=== PATIENT | female | born 2000 | race Caucasian/White ===

== ENCOUNTER 2023-08-17 06:01 | Day surgery (SDC) | payer OTHER, SELFPAY ==
--- OUTSIDE RECORDS SUMMARY | 2023-08-17 06:04 | XMS_ITS | Referral Summary ---
Author Name Unknown Organization [facility] Address [address] [place] [address] Care Team Providers Care Pyroglazer Name Role Phone Black Bruno P.A.-C., P.A. Primary Care Pr ovider Source Comments Patient records contain information from all sites at [facility]. For routine questions regarding patient records, call [phone] during business hours, M-F 8:00 AM - 5:00 PM Central Time. Record requests for emergency care only can be directed to [phone] at any time.[facility] Encounters Date Type Department Care Team Description 08/02/2023 7:50 AM CDT - 08/02/2023 11:59 PM CDT Hospital Encounter Department of Radiology in [address] [phone] Black Bruno P.A.-C., P.A. Preoperative Exam Discharge Disposition: Home or Self Care 08/02/2023 7:30 AM CDT Office Visit Department of Family Medicine, [facility], in [address] [phone] Black Bruno P.A.-C., P.A. Anxiety (Primary Dx); Morbid Obesity Body Mass Index 45.0-49.9 Adult (HCC); Preoperative Exam; Cough Unspecified Type 07/26/2023 4:00 PM CDT Office Visit Department of Family Medicine, [facility], in [address] [phone] Black Bruno P.A.-C., P.A. Sinusitis (Primary Dx) 07/15/2023 Clinical Communication Department of [facility], [facility], in [place], [place] [address] [place] [phone] Black Bruno P.A.-C., P.A. Communication (Pre Op questions) 07/06/2023 Clinical Communication Department of [facility], in [place], [place] [address] [place] [phone] Black Bruno P.A.-C., P.A. from Last 3 Months Allergies Active Allergy Reactions Criticality Noted Date Comments Ethinyl Estradiol Other (see comments) High 06/11/19 24 redness of skin, burning sensation Norelgestromin Rash High 06/11/2023 redness of skin, burning sensation Medications Medication Sig Dispensed Refills Start Date End Date Status montelukast (SINGULAIR) 10 mg tablet Take 1 tablet (10 mg total) by mouth at bedtime. 90 tablet 3 Active propranoloL (INDERAL) 40 mg tablet Take 1 tablet (40 mg total) by mouth every 6 (six) hours as needed (anxiety). 30 tablet 11 3 Active FLUoxetine (PROzac) 20 mg capsule Take 1 capsule (20 mg total) by mouth daily. 90 capsule 3 3 Active Additional Information Patient not taking.Reported on 07/26/2023 multivitamin/fol ic acid/dha (MULTIVITAMIN-FA -DHA ORAL) Take 1 tablet by mouth. 4 Active norgestimate-eth inyl estradioL (ORTHO-CYCLEN) 0.25- mg-35 mcg per tablet Take 1 tablet by mouth. 4 Active albuterol (ProAir HFA) 90 mcg/actuation inhaler Inhale 2 puffs every 4 (four) hours as needed for wheezing or shortness of breath. 25.5 g 3 4 Active azithromycin (ZITHROMAX) 250 mg tablet Take 2 tabs (500 mg) by mouth today, then 1 tab (250 mg) daily for 4 days. 6 tablet 4 Active fluticasone furoate-vilanter oL (BREO ELLIPTA DISKUS) 100-25 mcg/actuation inhaler Inhale 1 puff daily. 60 each 11 4 08/04/19 25 Active fluticasone propion-salmeter oL 100-50 mcg/actuation diskus inhaler Inhale 1 puff 2 (two) times a day. Rinse mouth with water after use to reduce aftertaste and incidence of candidiasis. Do not swallow. 60 each 4 Active albuterol (ProAir HFA) 90 mcg/actuation inhaler Inhale 2 puffs every 4 (four) hours as needed for wheezing or shortness of breath. 25.5 g 3 3 07/26/19 24 Discontinued(Reo rder) Xulane 150-35 mcg/24 hr patch Apply 1 patch each week for 3 weeks, then remove for 1 week. 3 patch 12 3 08/02/19 24 Discontinued semaglutide (Wegovy) 1.7 mg/0.75 mL pen injector injection Inject 1.7 mg under the skin every 7 (seven) days. 3 mL 4 07/26/19 24 Discontinued amoxicillin-pot clavulanate (AUGMENTIN) 875-125 mg per tablet Take 1 tablet by mouth. 4 07/27/19 24 Active Problems Problem Noted Date Diagnosed Date Morbid Obesity Body Mass Index 45.0-49.9 Adult 0 04/15/2023 Anxiety 06/13/2021 Rhinitis Allergic 06/13/2021 Immunizations Name Administration Dates Next Due 4vHPV (discontinued) 11/02/2013,10/13/2012 9vHPV 02/08/2015,11/02/2013,10/13/2012 DTaP (Infanrix, Tripedia) 07/09/2005,,05/27/2001,2000,2000 HepA Pediatric/Adolescent 12/19/2018,11/25/2016 Hib-HepB 05/15/2002,02/28/2001,2000 IPV 07/09/2005, 2,02/28/2001,2000 Influenza (IM) Preservative Free 12/22/2017, 09/2012 Influenza Laiv (Nasal) (Discontinued) 01/08/2014 Influenza, Injectable, Quadrivalent 12/13/2016 Influenza, Seasonal, Injectable 03/01/2012 MCV4 (Menactra)(Discontinued) 08/09/2017, 017,01/08/2014 MCV4 (Menveo) 08/09/2017,01/08/2014 MMR 07/09/2005,10/17/2001 PCV7 (discontinued) 05/15/2002,05/27/2001,2000 SARS-COV-2 (COVID-19) - MODERNA(Discontinued) 05/02/2020,04/03/2020 Tdap 04/15/2023,10/13/2012 ARMIDA 10/13/2012,07/09/2005 influenza vaccine quad (FLUZONE/FLUARIX) (6 months and older)(PF) 12/30/2022,01/04/2022,01/02/2021,2019,01/06/2019,12/22/2017,12/13/2016,1 05/27/2015,02/02/2013,03/01/2012 Social History Tobacco Use Types Packs/Day Years Used Date Smoking Tobacco: Never Smokeless Tobacco: Never Tobacco Cessation:Counseling Given: Not Answered Alcohol Use Standard Drinks/Week Comments Not Currently 0 (1 standard drink = 0.6 oz pur e alcohol) [facility] Communicadoities Answer Date Recorded In the past 12 months has [facility] [employer], [employer], oil, or water [employer] threatened to shut off services in your home? No 03/23/2023 Humiliation, Afraid, Rape, and Kick questionnair e Answer Date Recorded Within the last year, have y ou been afraid of your partner or ex-partner? No 06/08/2021 Within the last year, have y ou been humiliated or emotionally abused in other ways by your partner or ex-partner? No Within the last year, have y ou been kicked, hit, slapped, or otherwise physically hurt by your partner or ex-partner? No 06/08/2021 Within the last year, have y ou been raped or forced to have any kind of sexual activity by your partner or ex-partner? No 06/08/2021 Social Connection and Isolat ion Panel [NHANES] Answer Date Recorded In a typical week, how many times do you talk on the phone with family, friends, or neighbors? Twice a week 06/08/2021 How often do you get togethe r with friends or relatives? Once a week 06/08/2021 How often do you attend chur ch or temple services? More than 4 times per year 06/08/2021 Do you belong to any clubs o r organizations such as episcopal groups, unions, fraternal or athletic groups, or school groups? Yes 06/08/2021 How often do you attend meet ings of the clubs or organizations you belong to? 1 to 4 times per year 06/08/2021 Are you , , di vorced, , never , or living with a partner? Patient declined 06/08/2021 AUDIT-C Answer Date Recorded Q1: How often do you have a drink containing alc ohol? Never 06/08/2021 Average Number of Drinks Not on file 022 Frequency of Binge Drinking Not on file 05/27 Overall Financial Resource Strain (CARDIA) Answe r Date Recorded How hard is it for you to pa y for the very basics like food, housing, medical care, and heating? Patient declined 06/08/2021 PHQ-2 Answer Date Recorded PHQ-2 Score 0 04/12/2023 [facility] - Occupational Stress Questionnaire Answer Date Recorded Do you feel stress - tense, restless, nervous, or anxious, or unable to sleep at night because your mind is troubled all the time - these days? Only a little 06/08/2021 Exercise Vital Sign Answer Date Recorde d On average, how many days pe r week do you engage in moderate to strenuous exercise (like a brisk walk)? Patient declined On average, how many minutes do you engage in exercise at this level? Patient declined 03/23/2023 Hunger Vital Sign Answer Date Recorded Within the past 12 months, y ou worried that your food would run out before you got the money to buy more. Never true 03/23/20 23 Within the past 12 months, t he food you bought just didn't last and you didn't have money to get more. Never true 03/23/2023 PRAPARE - Transportation Answer Date Re corded In the past 12 months, has l ack of transportation kept you from medical appointments or from getting medications? No 02/27 In the past 12 months, has l ack of transportation kept you from meetings, work, or from getting things needed for daily living? No 03/23/2023 Nutrition Answer Date Recorded On average, how many serving s of fruits and vegetables do you eat per day (serving size is equal to 1 cup or approximately the size of a tennis ball)? 5 or more 03/23/2023 Dental Answer Date Recorded Dental: Regular Dentist Yes 06/03/19 Employment Answer Date Recorded Employment status Employed and actively working without restrictions 03/23/2023 Housing Stability Answer Date Recorded What is your living situation today? I have a [facility] place to live 03/23/2023 Education Answer Date Recorded What is the highest level of school you have completed or the highest degree you have received? Associate degree: occupational, technical, or vocational program 06/02/2021 Sex and Gender Information Value Date Recorded Sex Assigned at Female 03/23/2023 5:23 PM STORAGE WHARFAGE CLERK Gender Identity Female 03/23/2023 5:23 PM STORAGE WHARFAGE CLERK Sexual Orientation Straight 03/23/2023 5: 23 PM STORAGE WHARFAGE CLERK Last Filed Vital Signs Vital Sign Reading Time Taken Comments Blood Pressure 126/85 08/02/2023 7:24 AM CDT ave rage Pulse 98 08/02/2023 7:24 AM CDT Temperature 36 ??C (96.8 ??F) 08/02/2023 7:24 AM CDT Respiratory Rate 16 08/02/2023 7:24 AM CDT Oxygen Saturation 98% 08/02/2023 7:24 AM CDT Inhaled Oxygen Concentration - - Weight 130 kg (287 lb 11.2 oz) 08/02/2023 7:24 A M CDT Height 164 cm (5' 4.57) 08/02/2023 7:24 AM CDT Body Mass Index 48.52 08/02/2023 7:24 AM CDT Plan of Treatment Not on file Procedures Procedure Name Priority Date/Time Associated Diagnosis Comments DX CHEST AP OR PA AND LATERAL 2 VIEWS RAD - Routine (most inpatients and all outpatients) 08/02/2023 8:16 AM CDT Preoperative Exam from Last 3 Months Results * DX Chest AP or PA and Lateral 2 Views (08/02/2023 8:16 AM CDT) Anatomical Region Laterality Modality Chest, Thoracic RST LOS, Tho racic ARZ LOS, Thoracic FLA LOS N/A Digital Radiography Impressions 08/02/2023 8:28 AM CDT Negative chest. Narrative 08/02/2023 8:28 AM CDT EXAM: DX CHEST AP OR PA AND LATERAL 2 VIEWS Procedure Note Keith Ching M.D. - 08/02/2023 EXAM: DX CHEST AP OR PA AND LATERAL 2 VIEWS IMPRESSION: Negative chest. Black Bruno P.A.-C., P.A. IMG DIAG NOSTIC IMAGING PROCEDURES from Last 3 Months Care Teams Pyroglazer Relationship Specialty Start Date End Date Black Bruno P.A.-C., P.A. PCP - General Family Medicine 08/27/17
--- OUTSIDE RECORDS SUMMARY | 2023-08-17 06:04 | XMS_ITS | Clinical Summary ---
Author Name Unknown Organization [facility] Address [address] [place] [address] Care Team Providers Care Gas Controller Name Role Phone Black Bruno P.A.-C., P.A. Primary Care Pr ovider Source Comments Patient records contain information from all sites at [facility]. For routine questions regarding patient records, call [phone] during business hours, M-F 8:00 AM - 5:00 PM Central Time. Record requests for emergency care only can be directed to [phone] at any time.[facility] Allergies Active Allergy Reactions Criticality Noted Date [...] 0 04/15/2023 Anxiety 06/13/2021 Rhinitis Allergic 06/13/2021 Encounters Date Type Department Care Team Description 08/02/2023 7:50 AM CDT - 08/02/2023 11:59 PM CDT Hospital Encounter Department of Radiology in [address] [phone] RoBlack epps P.A.-C., P.A. Preoperative Exam Discharge Disposition: Home or Self Care 08/02/2023 7:30 AM CDT Office Visit Department [facility], [address] [address] Black Bruno P.A.-C., P.A. Anxiety (Primary Dx); Morbid Obesity Body Mass Index 45.0-49.9 Adult (HCC); Preoperative Exam; Cough Unspecified Type 07/26/2023 4:00 PM CDT Office Visit Department [facility], [address] [phone] Black Bruno P.A.-C., P.A. Sinusitis (Primary Dx) 07/15/2023 Clinical Communication Department of [facility], [address] [phone] Black Bruno P.A.-C., P.A. Communication (Pre Op questions) 07/06/2023 Clinical Communication Department of [facility], [address] [phone] Black Bruno P.A.-C., P.A. from Last 3 Months Immunizations Name Administration Dates Next Due 4vHPV [...] drink = 0.6 oz pur e alcohol) [facility] [employer]ities Answer Date Recorded In the past 12 months has [facility] [employer], [employer], oil, or water [employer] threatened to shut off services in your [...] often do you attend chur ch or mormonism services? More than 4 times per year 06/08/2021 Do you belong to any clubs o r organizations such as taoist groups, unions, fraternal or athletic groups, or [...] Answer Date Recorded PHQ-2 Score 0 04/12/2023 [facility] ional Health - Occupational [...] your living situation today? I have a [facility] place to live 03/23/2023 Education Answer Date Recorded What is the highest level of school you have completed or the highest degree you have received? Associate degree: occupational, technical, or vocational program 06/02/2021 Sex and Gender Information Value Date Recorded Sex Assigned at Female 03/23/2023 5:23 PM HARDBOARD FACTORY WORKER Gender Identity Female 03/23/2023 5:23 PM HARDBOARD FACTORY WORKER Sexual Orientation Straight 03/23/2023 5: 23 PM HARDBOARD FACTORY WORKER Last Filed Vital Signs Vital Sign Reading [...] 08/02/2023 7:24 AM CDT Plan of Treatment Health Maintenance Due Date Last Done Comments Hepatitis C Screening 2000 COVID-19 Vaccine () 11/27/2022 03/16/2021, 05/02/2020, 04/03/2020 Cervical Cancer Screening 06/10/20262023 (Performed elsewhere), 06/11/2023 DTaP,Tdap,and Td Vaccines (8 - Td or Tdap) 04/15/2033 04/15/2023, 10/13/2012, 07/09/2005, Additional history exists Hepatitis B Vaccines Completed 05/15/2002, 02/28/2001, 2000 Pneumococcal vaccine (0-64 years) Aged Out 05/15/2002, 05/27/2001, 02/28/2001 No longer eligible based on patient's age to complete this topic HPV Vaccines Completed 02/08/2015, 09/2013, 11/02/2013, Additional history exists Meningococcal Vaccine Completed 08/09/2017 , 08/09/2017, 11/25/2016, Additional history exists Hepatitis A Vaccines Completed 12/19/2018, 11/26/19 17 Influenza Vaccine Completed 12/30/2022, , 01/02/2021, Additional history exists Depression Screening (Annual PHQ-2) Completed 04/15/2023, 04/12/2023 Procedures Procedure Name Priority Date/Time Associated Diagnosis [...] LATERAL 2 VIEWS IMPRESSION: Negative chest. Black JassoC., P.A. IMG DIAG NOSTIC IMAGING PROCEDURES from Last 3 Months Care Teams Gas Controller Relationship Specialty Start Date End Date Black Bruno P.A.-C., P.A. PCP - General Family Medicine 08/27/17
--- OUTSIDE RECORDS SUMMARY | 2023-08-17 06:04 | XMS_ITS | Clinical Summary ---
Author Name Unknown Organization [facility] Address [place], [place] [address] Support Name Relationship Address Phone Opal Laboy Emergency Contact [phone]30 [facility] [address] [address] [address] [facility]arda [facility] Contact [address] [address] Care Team Providers Care National Sales Trainer Name Role Phone Barrington Lopes MD Primary Care Provider Allergies No known active allergies Medications Medication Sig Dispensed Refills Start Date End Date Status fluticasone (50 mcg per actuation) nasal solution (FLONASE)Indicatio ns:Non-recurrent acute suppurative otitis media of left ear without spontaneous rupture of tympanic membrane Inhale 1 [place] in the nostril(s) 2 times daily. 1 Bottle 11 09/15/2019 Active MONO-LINYAH 0.25-35 mg-mcg tablet Take 1 tablet by mouth once daily. 05/17/2020 Active albuterol HFA (PRO-AIR; VENTOLIN; PROVENTIL) 90 mcg/actuation inhalerIndications :Acute non-recurrent pansinusitis Inhale 2 Puffs by mouth every 4 hours if needed (cough or wheezing). 1 Each 08/11/2022 Active propranoloL (INDERAL) 40 mg tablet TAKE ONE TABLET BY MOUTH EVERY 6 HOURS NEEDED FOR ANXIETY Active FLUoxetine (PROZAC) 20 mg capsule Take 20 mg by mouth. 03/26/2023 Active montelukast (SINGULAIR) 10 mg tablet Take 10 mg by mouth. 06/13/2021 Active triamcinolone 0.025% topical (ARISTOCORT) 0.025 % creamIndications:D ermatitis Apply topically to affected area(s) 2 times daily. 80 g 2020 4 Discontinued (*Patient states no longer taking) amoxicillin-clavul anate 875-125 mg tablet (AUGMENTIN)Indicat ions:Acute non-recurrent pansinusitis Take 1 Tablet by mouth two times daily with meals for 7 days. 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 The right ear is slightly painful. ) 07/20/2023 Travel 06/14/2023 Lab Requisition [facility] [phone] Vu, Mary Mao MD from Last 3 Months Immunizations Name Administration Dates Next Due AMB Influenza, (Flumist) Mckayla e Intranasal,LAIV4 (Flu Clinic Only) 01/17/2015 AMB Influenza, IIV3 (Age >=3 years) Preserve Free (Flu Clinic Only) 02/02/2013 DTaP 07/09/2005, 3,05/27/2001,02/28,2000 HIB PRP-T (ActHIB,Hiberix) 05/15/2002,02/28/2001 ,2000 HPV 9 (Gardasil 9) 02/08/2015 Hepatitis B (Peds) 05/15/2002,02/28/2001, 001 Human Papilloma Virus Vaccine 11/02/2013, 013 Inactivated Polio Vaccine 07/09/2005,03/2001,02/28/2001,12/16 Influenza, IIV3 (Age >=3 years) 03/01/2012 Influenza, IIV4 03/26/2016 Influenza,LAIV4 Live Intrana andreina (Flumist) 01/08/2014 MMR 07/09/2005,10/17/2001 Meningococcal Vaccine (Menveo) 08/09/2017,2013 Pneumococcal conj 7-Valent (Prevnar 7) 3,05/27/2001,02/28/2001 Tdap 10/13/2012 Varicella Vaccine 10/13/2012,07/09/2005 Family History Medical History Relation Name Comments Good Health Brother 1 Good Health Brother 2 Asthma Father Tod Hypertension Father Tod Good Health Mother Opal GI Disease Neg. Good Health Sister Relation Name Status Comments Brother 1 Alive Brother 2 Alive Father Tod Alive Mother Opal Alive Neg. Sister Alive Social History Tobacco Use Types Packs/Day Years Used Date Smoking Tobacco: Never Smokeless Tobacco: Never Tobacco Cessation:Counseling Given: Yes Alcohol Use Standard Drinks/Week Comments Never 0 (1 standard drink = 0.6 oz pur e alcohol) PHQ-2 Answer Date Recorded PHQ-2 Score 0 09/12/2018 Social Connections Answer Date Recorded Frequency of Communication with Friends and Fami ly Not on file 03/29/2021 Financial Resource Strain Answer Date R ecorded Difficulty of Paying Living Expenses Not on file 03/29/2021 Difficulty of Paying Living Expenses Not on file 03/29/2021 Sex and Gender Information Value Date Recorded Sex Assigned at Not on file Gender Identity Not on file Sexual Orientation Not on file Obstetrics History Para Term AB IAB SAB Ectopic Multiple Livin g Live Births 0 0 0 0 0 0 0 0 0 0 0 Last Filed Vital Signs Vital Sign Reading Time Taken Comments Blood Pressure 139/83 07/20/2023 5:14 PM CDT Pulse 93 07/20/2023 5:14 PM CDT Temperature 36.6 ??C (97.8 ??F) 07/20/2023 5:14 PM CD T Respiratory Rate 16 07/20/2023 5:14 PM CDT Oxygen Saturation 98% 07/20/2023 5:14 PM CDT Inhaled Oxygen Concentration - - Weight 125.4 kg (276 lb 8 oz) 08/11/2022 12:09 P M CDT Height 165.1 cm (5' 5) 09/12/2018 3:46 PM CDT Body Mass Index - - Plan of Treatment Health Maintenance Due Date Last Done Comments HIV for age 15-65 10/17/2015 BMI (ht and wt on same day) for age 18+ 2018 Hepatitis C screening for age 18-79 2018 Depression screening for age 12+ 09/13/2019 09/12/2018, 08/09/2017 Tetanus booster 10/13/2022 10/13/2012 COVID-19 vaccine series ( season) 2022 03/16/2021, 05/02/2020, 04/03/2020 Influenza for age 9-49 11/28/2023 6, 01/17/2015, 01/08/2014, Additional history exists Pap test for age 21-65 06/10/2026 06/11/2023 Pneumococcal series for age 6-64 Aged Out 05/15/2002, 05/27/2001, 02/28/2001 No longer eligible based on patient's age to complete this topic Tdap Completed 10/13/2012 HPV series for age 9-26 Completed 02/09/20 15, 11/02/2013, 10/13/2012 Procedures Procedure Name Priority Date/Time Associated Diagnosis Comments LAB TRACKING EVENT Routine 06/11/2023 1: 40 PM CDT RF DESIGN ENGINEER THIN PREP PAP SCREEN IMAGED Routine 06/11/2023 1:40 PM CDT from Last 3 Months Results * LAB TRACKING EVENT (06/11/2023 1:40 PM CDT) Other (Other) Client Collect / Unknown 06/11/2023 1:40 PM CDT 06/14/2023 3:23 PM CDT Mary Mcclain MD LAB BILL ONLY Performing Organization Address City/State/[facility] Co de Phone Number [facility] [address] [place] [address], * RF DESIGN ENGINEER THIN PREP PAP SCREEN IMAGED (06/11/2023 1:40 PM CDT) Case Report Gynecologic Cytology Report ? Case: [id number] ? Authorizing Provider: ??Johny, Mary Mao MD ?Collected: ? 06/11/2023 1340 ? Ordering Location: ? [facility] ?Received: ?06/15/2023 1251 ? First Screen: ?Kalpana Bolden ? Specimen: ?RF DESIGN ENGINEER ThinPrep Vial Screening, Cervical ? 06/22/2023 6:01 PM CDT [facility] [employer] [facility] INTERPRETATION/ RESULT NEGATIVE FOR INTRAEPITHELIAL LESION OR MALIGNANCY (NIL) (none) 06/22/2023 6:01 PM CDT [facility] [employer] [facility] IMEN ADEQUACY Satisfactory for evaluation Endocervical component present 06/22/2023 6:01 PM CDT [facility] [employer] A/S LABORATORY ENTRCT LABORATORY HPV REQUEST HPV not requested 2023 6:01 PM CDT [facility] [employer] A/S LABORATORY- ENTRAL LABORATORY Date of LMP 05/20/2023 06/22/2023 6:01 PM CDT [facility] [employer] A/S LABORATORY-C ENTRAL LABORATORY Last Pap Date 06/22/2023 6:01 PM CDT [facility] [employer] A/S [facility]- ENTRAL LAB[facility]AT[facility] Comment:n/a Abnormal Pap or [place] Bx in last 5 years No 06/22/2023 6:01 PM CDT [facility] [employer] A/S LABORATORY- ENTRAL LABORATORY Menstrual Status Regular Periods 06/22/2023 6:01 PM CDT [facility] [employer] A/S LABORATORY- ENTRCT LABORATORY [place] Bx Done Today No 06/22/2023 6:01 PM CDT [facility]-C ENTRAL LABORATORY Additional Information 1st pap 06/22/2023 6:01 PM CDT [facility] Comment: Interpreted at [facility], Central Laboratory - [address], [place] [address] Automated Review Successful 06/22/2023 6:01 PM CDT [facility] Comment:Specimen processed s uccessfully by automated carton filling machine operator device, ThinPrep Imaging System, [employer] Note The pap test is a screening technique, not a diagnostic procedure. It is used primarily to screen for squamous cancers and precursor lesions. Published studies have shown that it is subject to both false negative and false positive results. The pap test should not be used as the sole means to diagnose or exclude pre-malignant and malignant lesions. 06/22/2023 6:01 PM CDT [facility] Other (Cervical) 06/11/2023 1:40 PM CDT 06/15/2023 12:51 PM CDT Mary Daylin Mcclain MD PATHOLOGY/CYTOLOGY [facility] [address] [place] [address], [place] from Last 3 Months Care Teams National Sales Trainer Relationship Specialty Start Date End Date Barrington Lopes MD [address] [place] [address] [address] [address] [address] PCP - General Family Practice 10/14/20
--- OUTSIDE RECORDS SUMMARY | 2023-08-17 06:04 | XMS_ITS ---
Author Name Unknown Organization [facility] Address [address] [place] [address] Care Team Providers Care Branch General Manager Name Role Phone Unavailable Unavailable Unavailable Surgery Details Not on file Complications Check Surgery Details section. Procedure Estimated Blood Loss Check Surgery Details section. Procedure Findings Check Surgery Details section. Procedure Specimens Taken Check Surgery Details section.
--- OUTSIDE RECORDS SUMMARY | 2023-08-17 06:05 | XMS_ITS | Encounter Summary ---
Author Name Unknown Organization [facility] Address [address] [place] [address] Care Team Providers Care Manufacturing Quality Engineer Name Role Phone Black Bruno P.A.-C., P.A. Primary Care Pr ovider Encounter Details Date Type Department Care Team (Late st Contact Info) Description 04/19/2023 Clinical Communication Pharmacy Prior [place] [phone] Rupa Bojorquez Social History Tobacco Use Types Packs/Day Years Used Date Smoking Tobacco: Never Smokeless Tobacco: Never Alcohol Use Standard Drinks/Week Comments Not Currently 0 (1 standard drink = 0.6 oz pur e alcohol) [facility] Utilities Answer Date Recorded In the past 12 months has e electric, gas, oil, or water company threatened to shut off services in your [...] often do you attend chur ch or yazdanism services? More than 4 times per year 06/08/2021 Do you belong to any clubs o r organizations such as temple groups, unions, fraternal or athletic groups, or [...] Answer Date Recorded PHQ-2 Score 0 04/12/2023 [facility] - Occupational Stress [...] your living situation today? I have a [facility] place to live 03/23/2023 Education Answer Date Recorded What is the highest level of school you have completed or the highest degree you have received? Associate degree: occupational, technical, or vocational program 06/02/2021 Sex and Gender Information Value Date Recorded Sex Assigned at Female 03/23/2023 5:23 PM BUSINESS ANALYTICS DIRECTOR Gender Identity Female 03/23/2023 5:23 PM BUSINESS ANALYTICS DIRECTOR Sexual Orientation Straight 03/23/2023 5: 23 PM BUSINESS ANALYTICS DIRECTOR documented as of this encounter Plan of Treatment Not on file documented as of this encounter Visit Diagnoses Not on filedocumented in this encounter Care Teams Manufacturing Quality Engineer Relationship Specialty Start Date End Date Black Bruno P.A.Jaimee., P.A. PCP - General Family Medicine 08/27/17 documented as of this encounter
--- OUTSIDE RECORDS SUMMARY | 2023-08-17 06:05 | XMS_ITS | Encounter Summary ---
Author Name Unknown Organization [facility] Address [address] [place] [address] Care Team Providers Care Multi Township Assessor Name Role Phone Black Bruno P.A.-C., P.A. Primary Care Pr ovider Encounter Details Date Type Department Care Team (Late st Contact Info) Description 04/21/2023 Clinical Communication Department of Family Medicine, [facility], in [place], [place] [address] [place] [address] Black Bruno P.A.-C., P.A. [address] [place] [address] Social History Tobacco Use Types Packs/Day Years Used Date Smoking Tobacco: Never Smokeless Tobacco: Never Alcohol Use Standard Drinks/Week Comments Not Currently 0 (1 standard drink = 0.6 oz pur e alcohol) [facility] Utilities Answer Date Recorded In the past 12 months has [facility], gas, oil, or water [employer] threatened to shut off services in your [...] 06/08/2021 How often do you attend chur or moravian services? More than 4 times per year 06/08/2021 Do you belong to any clubs o r organizations such as mandaen groups, unions, fraternal or athletic groups, or [...] Answer Date Recorded PHQ-2 Score 0 04/12/2023 [facility] - Occupational Stress Questionnaire Answer Date Recorded [...] your living situation today? I have a [facility] place to live 03/23/2023 Education Answer Date Recorded What is the highest level of school you have completed or the highest degree you have received? Associate degree: occupational, technical, or vocational program 06/02/2021 Sex and Gender Information Value Date Recorded Sex Assigned at Female 03/23/2023 5:23 PM INSURANCE SALES EXECUTIVE Gender Identity Female 03/23/2023 5:23 PM INSURANCE SALES EXECUTIVE Sexual Orientation Straight 03/23/2023 5: 23 PM INSURANCE SALES EXECUTIVE documented as of this encounter Plan of Treatment Not on file documented as of this encounter Visit Diagnoses Not on filedocumented in this encounter Care Teams Multi Township Assessor Relationship Specialty Start Date End Date Black Bruno P.A.-C., P.A. PCP - General Family Medicine 08/27/17 documented as of this encounter
--- OUTSIDE RECORDS SUMMARY | 2023-08-17 06:05 | XMS_ITS | Encounter Summary ---
Author Name Unknown Organization [facility] Address [address] [place] [address] Care Team Providers Care Industrial Organization Manager Name Role Phone Black Bruno P.A.-C., P.A. Primary Care Pr ovider Reason for Visit * Reason Onset Date Comments Rx Prior Authorization 05/04/2023 [facility] Rx Denial 05/04/2023 [facility] Encounter Details Date Type Department Care Team (Latest Contact Info) Description 05/04/2023 Clinical Communication Department of Family Medicine, [facility], in [place], [place] [address] [place] [address] Black Bruno P.A.-C., P.A. [address] [place] [address] Rx Prior Authorization ([facility]); Rx Denial ([facility]) Social History Tobacco Use Types Packs/Day Years Used Date Smoking Tobacco: Never Smokeless Tobacco: Never Alcohol Use Standard Drinks/Week Comments Not Currently 0 (1 standard drink = 0.6 oz pur e alcohol) [facility] Utilities Answer Date Recorded In the past [...] often do you attend chur ch or latter-day services? More than 4 times per year 06/08/2021 Do you belong to any clubs o r organizations such as catholic groups, unions, fraternal or athletic groups, or [...] Answer Date Recorded PHQ-2 Score 0 04/12/2023 [facility] of Occupat ional Health - Occupational Stress [...] money to buy more. Never true 03/23/20 Within the past 12 months, t he [...] your living situation today? I have a [facility] place to live 03/23/2023 Education Answer Date Recorded What is the highest level of school you have completed or the highest degree you have received? Associate degree: occupational, technical, or vocational program 06/02/2021 Sex and Gender Information Value Date Recorded Sex Assigned at Female 03/23/2023 5:23 PM ELECTRIC DEICER INSPECTOR Gender Identity Female 03/23/2023 5:23 PM ELECTRIC DEICER INSPECTOR Sexual Orientation Straight 03/23/2023 5: 23 PM ELECTRIC DEICER INSPECTOR documented as of this encounter Plan of Treatment Not on file documented as of this encounter Visit Diagnoses Not on filedocumented in this encounter Care Teams Industrial Organization Manager Relationship Specialty Start Date End Date Black Bruno P.A.-C., P.A. PCP - General Family Medicine 08/27/17 documented as of this encounter
--- OUTSIDE RECORDS SUMMARY | 2023-08-17 06:05 | XMS_ITS | Encounter Summary ---
Author Name Unknown Organization [facility] Address [address] [place] [address] Care Team Providers Care Roving Tester Laboratory Name Role Phone Black Bruno P.A.-C., P.A. Primary Care Pr ovider Reason for Visit * Reason Onset Date Comments Communication 07/15/2023 Pre Op questions Encounter Details Date Type Department Care Team (Latest Contact Info) Description 07/15/2023 Clinical Communication Department of Family Medicine, [facility], in [place], [place] [address] [place] [address] Black Bruno P.A.-C., P.A. [address] [place] [address] Communication (Pre Op questions) Social History Tobacco Use Types Packs/Day Years Used Date Smoking Tobacco: Never Smokeless Tobacco: Never Alcohol Use Standard Drinks/Week Comments Not Currently 0 (1 standard drink = 0.6 oz pur e alcohol) [facility] Utilities Answer Date Recorded In the past 12 months has [employer] gas, oil, or water [employer] threatened to shut off services in your [...] How often do you attend chur or amish services? More than 4 times per year 06/08/2021 Do you belong to any clubs o r organizations such as voodoo groups, unions, fraternal or athletic groups, or [...] Answer Date Recorded PHQ-2 Score 0 04/12/2023 [facility] of Occupat ional Health - Occupational [...] your living situation today? I have a [facility] place to live 03/23/2023 Education Answer Date Recorded What is the highest level of school you have completed or the highest degree you have received? Associate degree: occupational, technical, or vocational program 06/02/2021 Sex and Gender Information Value Date Recorded Sex Assigned at Female 03/23/2023 5:23 PM YOUTH LIAISON OFFICER Gender Identity Female 03/23/2023 5:23 PM YOUTH LIAISON OFFICER Sexual Orientation Straight 03/23/2023 5: 23 PM YOUTH LIAISON OFFICER documented as of this encounter Miscellaneous Notes * Telephone Encounter - Tima Chris, L.P.N. - 07/15/2023 4:59 PM CDT Patient is aware of Black response. documented in this encounter Plan of Treatment Not on file documented as of this encounter Visit Diagnoses Not on filedocumented in this encounter Care Teams Roving Tester Laboratory Relationship Specialty Start Date End Date Black Bruno P.A.-C. P.A. PCP - General Family Medicine 08/27/17 documented as of this encounter
--- OUTSIDE RECORDS SUMMARY | 2023-08-17 06:05 | XMS_ITS | Encounter Summary ---
Author Name Unknown Organization [facility] Address [address] [place] [address] Care Team Providers Care Chief Fishery Division Name Role Phone Black Bruno P.A.-C., P.A. Primary Care Pr ovider Reason for Referral * Outpatient (Routine) - Closed Specialty Diagnoses / Procedures Referred By Paco ferraro Referred To Contact Diagnoses Preoperative Exam Procedures DX Chest AP or PA and Lateral 2 Views Black Bruno P.A.-C., P.A. [address] [place] [address] [facility] Region Referral ID Status Reason Start Date Expiration Date Visits Re quested Visits Authorized [id number] Closed 08/02/2023 08/01/2024 1 1 Reason for Visit * Reason Comments Pre-op Exam IUD placement 08/[address] [facility] [address] Mcclain Still having dry cough- worse at night affected sleep. * Appointment Request (Routine) - Closed Specialty Diagnoses / Procedures Referred By Paco t Referred To Contact Family Medicine Referral ID Status Reason Start Date Expiration Date Visits Re quested Visits Authorized [id number] Closed 07/15/2023 07/14/2024 1 1 Encounter Details Date Type Department Care Team (Late st Contact Info) Description 08/02/2023 7:30 AM CDT Office Visit Department of Family Medicine, [facility], in [place], [place] [address] [place] [address] Black Bruno P.A.-C., P.A. [address] [facility] [place] [address] Anxiety (Primary Dx); Morbid Obesity Body Mass Index 45.0-49.9 Adult (HCC); Preoperative Exam; Cough Unspecified Type Social History Tobacco Use Types Packs/Day Years Used Date Smoking Tobacco: Never Smokeless Tobacco: Never Alcohol Use Standard Drinks/Week Comments Not Currently 0 (1 standard drink = 0.6 oz pur e alcohol) [facility] Utilities Answer Date Recorded In the past 12 months has e [employer], gas, oil, or water [employer] threatened to shut off services in your [...] How often do you attend chur or yazdanism services? More than 4 times per year 06/08/2021 Do you belong to any clubs o r organizations such as moravian groups, unions, fraternal or athletic groups, or [...] Answer Date Recorded PHQ-2 Score 0 04/12/2023 [facility] of Occupat ional Health - [...] your living situation today? I have a [facility] place to live 03/23/2023 Education Answer Date Recorded What is the highest level of school you have completed or the highest degree you have received? Associate degree: occupational, technical, or vocational program 06/02/2021 Sex and Gender Information Value Date Recorded Sex Assigned at Female 03/23/2023 5:23 PM FINANCIAL SERVICE REPRESENTATIVE Gender Identity Female 03/23/2023 5:23 PM FINANCIAL SERVICE REPRESENTATIVE Sexual Orientation Straight 03/23/2023 5: 23 PM FINANCIAL SERVICE REPRESENTATIVE documented as of this encounter Last Filed Vital Signs Vital Sign Reading [...] Mass Index 48.52 08/02/2023 7:24 AM CDT documented in this encounter H&P Notes * Black Bruno, PJason.-C., P.A. - 08/02/2023 7:30 AM CDT SUBJECTIVE PREOPERATIVE HISTORY AND PHYSICAL CHIEF COMPLAINT / REASON FOR VISIT Adina Laboy is a 22 y.o. female who presents for evaluation of Pre-op Exam (IUD placement 08/16 [facility] [address]. Mcclain /Still having dry cough- worse at night affected sleep.). HISTORY OF PRESENT ILLNESS Adina presents today for preop history and physical prior to having her IUD placed. This is scheduled to be done in a couple weeks. Overall she is feeling well. She has a history of allergic rhinitis and has had some postnasal drip for about the last three weeks. Her symptoms have persisted and not really worsened she does not have a fever or productive cough. She does wonder if this might be aninfectious cause versus just her typical allergies. Otherwise she has no new concerns she is able to walk two blocks without having chest pain or shortness of breath. Current Outpatient Medications Medication Sig Dispense Refill albuterol (ProAir HFA) 90 mcg/actuation inhaler Inhale 2 puffs every 4 (four) hours as needed for wheezing or shortness of breath. 25.5 g 3 montelukast (SINGULAIR) 10 mg tablet Take 1 tablet (10 mg total) by mouth at bedtime. 90 tablet 0 multivitamin/folic acid/dha ([id number]-HN-NEE ORAL) Take 1 tablet by mouth. norgestimate-ethinyl estradioL (ORTHO-CYCLEN) 0.25- mg-35 mcg per tablet Take 1 tablet by mouth. propranoloL (INDERAL) 40 mg tablet Take 1 tablet (40 mg total) by mouth every 6 (six) hours as needed (anxiety). 30 tablet 11 azithromycin (ZITHROMAX) 250 mg tablet Take 2 tabs (500 mg) by mouth today, then 1 tab (250 mg) daily for 4 days. 6 tablet 0 FLUoxetine (PROzac) 20 mg capsule Take 1 capsule (20 mg total) by mouth daily. (Patient not taking:Reported on 07/26/2023) 90 capsule 3 No current facility-administered medications for this visit. Allergies Allergen Reactions Ethinyl Estradiol Other (see comments) redness of skin, burning sensation Norelgestromin Rash redness of skin, burning sensation MEDICAL HISTORY Patient Active Problem List Diagnosis Anxiety Rhinitis Allergic Morbid Obesity Body Mass Index 45.0-49.9 Adult (HCC) No past surgical history on file. Social History Tobacco Use Smoking status: Never Smokeless tobacco: Never Substance Use Topics Alcohol use: Not Currently Drug use: Never No family history on file. OBJECTIVE Vitals: 08/02/23 0724 BP: 126/85 BP Location: Left arm Patient Position: Sitting Cuff Size: Large Pulse: 98 Resp: 16 Temp: 36 ??C TempSrc: Temporal SpO2: 98% Weight: 130 kg Height: 164 cm Body mass index is 48.52 kg/m??. PHYSICAL EXAMINATION General: Patient appears in no acute distress. ENT: TMs no erythema. Throat no erythema. Neck: No lymphadenopathy. No thyroid masses. Heart: Regular rate and rhythm. No murmurs. Lungs: Clear to auscultation. Abdomen: Soft and nontender to palpation. ASSESSMENT / PLAN #1 Anxiety Overall this is doing well she uses propranolol on a p.r.n. basis #2 Morbid Obesity Body Mass Index 45.0-49.9 Adult (HCC) She will continue to work on her diet and exercise #3 Preoperative Exam She is ASA class one for surgery. Follow-up as scheduled. No restrictions #4 Cough Unspecified Type She has a very mild cough her symptoms are negative but it is gone on for the last three weeks I think likely this is her allergies although it is possible it could be an atypical bacterial infection. I am going to treated with Zithromax take a Z-Artemio as directed. If her symptoms worsen or not improve she will let us know. Total time spent 30 minutes Black Bruno P.A.-C., P.A. documented in this encounter Plan of Treatment Not on file documented as of this encounter Results * DX Chest AP or PA [...] P.A.-C., P.A. IMG DIAG NOSTIC IMAGING PROCEDURES documented in this encounter Visit Diagnoses Diagnosis Anxiety- Primary Morbid Obesity Body Mass Index 45.0-49.9 Adult (HCC) Preoperative Exam Cough Unspecified Type Preoperative Exam documented in this encounter Care Teams Chief Fishery Division Relationship Specialty Start Date End Date Black Bruno P.A.-C., P.A. PCP - General Family Medicine 08/27/17 documented as of this encounter
--- OUTSIDE RECORDS SUMMARY | 2023-08-17 06:05 | XMS_ITS | Encounter Summary ---
Author Name Unknown Organization [facility] Address [address] [place] [address] Care Team Providers Care Angular Developer Name Role Phone Black Bruno P.A.-C., P.A. Primary Care Pr ovider Encounter Details Date Type Department Care Team (Late st Contact Info) Description 07/06/2023 Clinical Communication Department of Family Medicine, [facility], in [place], [place] [address] [place] [address] Black Bruno P.A.-C., P.A. [address] [place] [address] Social History Tobacco Use Types Packs/Day Years Used Date Smoking Tobacco: Never Smokeless Tobacco: Never Alcohol Use Standard Drinks/Week Comments Not Currently 0 (1 standard drink = 0.6 oz pur e alcohol) [facility] Utilities Answer Date Recorded In the past 12 months has [facility] [employer], gas, oil, or water [employer] threatened to shut off services in your [...] How often do you attend chur or confucianism services? More than 4 times per year 06/08/2021 Do you belong to any clubs o r organizations such as adventist groups, unions, fraternal or athletic groups, or [...] Answer Date Recorded PHQ-2 Score 0 04/12/2023 [facility] - [facility]ational Stress Questionnaire Answer Date [...] living situation today? I have a [facility] place to live 03/23/2023 Education Answer Date Recorded What is the highest level of school you have completed or the highest degree you have received? Associate degree: occupational, technical, or vocational program 06/02/2021 Sex and Gender Information Value Date Recorded Sex Assigned at Female 03/23/2023 5:23 PM EXHIBITOR SALES Gender Identity Female 03/23/2023 5:23 PM EXHIBITOR SALES Sexual Orientation Straight 03/23/2023 5: 23 PM EXHIBITOR SALES documented as of this encounter Miscellaneous Notes * Telephone Encounter - Tima Chris L.P.N. - 07/06/2023 11:52 AM CDT This has been updated in Health Maintenance. Phone call does not go through. documented in this encounter Plan of Treatment Not on file documented as of this encounter Visit Diagnoses Not on filedocumented in this encounter Care Teams Angular Developer Relationship Specialty Start Date End Date Black Bruno P.A.-C., P.A. PCP - General Family Medicine 08/27/17 documented as of this encounter
--- OUTSIDE RECORDS SUMMARY | 2023-08-17 06:05 | XMS_ITS | Encounter Summary ---
Author Name Unknown Organization [facility] Address [address] [place] [address] Care Team Providers Care Legal Specialist Name Role Phone Black Bruno P.A.-C., P.A. Primary Care Pr ovider Reason for Referral * Outpatient (Routine) - Closed Specialty Diagnoses / Procedures Referred By Paco ferraro Referred To Contact Diagnoses Preoperative Exam Procedures DX Chest AP or PA and Lateral 2 Views Black Bruno P.A.-C., P.A. [address] [place] [address] [facility] Region Referral ID Status Reason Start Date Expiration Date Visits Re quested Visits Authorized [id number] Closed 08/02/2023 08/01/2024 1 1 Reason for Visit * Outpatient (Routine) - Closed Specialty Diagnoses / Procedures Referred By Paco ferraro Referred To Contact Diagnoses Preoperative Exam Procedures DX Chest AP or PA and Lateral 2 Views Black Bruno P.A.-C., P.A. [address] [place] [address] [facility] Region Referral ID Status Reason Start Date Expiration Date Visits Re quested Visits Authorized [id number] Closed 08/02/2023 08/01/2024 1 1 Encounter Details Date Type Department Care Team (Latest Contact Info) Description 08/02/2023 7:50 AM CDT - 08/02/2023 11:59 PM CDT Hospital Encounter Department of Radiology in [place], [place] [address] [facility] [place] [phone] Black Bruno P.A.-C., P.A. [address] [facility] [place] [phone] Preoperative Exam Discharge Disposition: Home or Self Care Social History Tobacco Use Types Packs/Day Years Used Date Smoking Tobacco: Never Smokeless Tobacco: Never Alcohol Use Standard Drinks/Week Comments Not Currently 0 (1 standard drink = 0.6 oz pur e alcohol) [facility] Utilities Answer Date Recorded In the past 12 months has e [employer], gas, oil, or water [employer] threatened to shut off services in your [...] often do you attend chur ch or buddhist services? More than 4 times per year 06/08/2021 Do you belong to any clubs o r organizations such as religion groups, unions, fraternal or athletic groups, or [...] living situation today? I have a [facility] place to live 03/23/2023 Education Answer Date Recorded What is the highest level of school you have completed or the highest degree you have received? Associate degree: occupational, technical, or vocational program 06/02/2021 Sex and Gender Information Value Date Recorded Sex Assigned at Female 03/23/2023 5:23 PM FLOAT TENDER Gender Identity Female 03/23/2023 5:23 PM FLOAT TENDER Sexual Orientation Straight 03/23/2023 5: 23 PM FLOAT TENDER documented as of this encounter Medications at Time of Discharge Medication Sig Dispensed Refills Start Date End Date albuterol (ProAir HFA) 90 mcg/actuation inhaler Inhale 2 puffs every 4 (four) hours as needed for wheezing or shortness of breath. 25.5 g 3 07/26/2023 azithromycin (ZITHROMAX) 250 mg tablet Take 2 tabs (500 mg) by mouth today, then 1 tab (250 mg) daily for 4 days. 6 tablet 08/02/2023 FLUoxetine (PROzac) 20 mg capsule Take 1 capsule (20 mg total) by mouth daily. 90 capsule 3 03/26/2023 fluticasone furoate-vilanteroL (BREO ELLIPTA DISKUS) 100-25 mcg/actuation inhaler Inhale 1 puff daily. 60 each 11 08/04/2023 08/03/2024 montelukast (SINGULAIR) 10 mg tablet Take 1 tablet (10 mg total) by mouth at bedtime. 90 tablet 02/22/2023 multivitamin/folic acid/dha ([id number] ORAL) Take 1 tablet by mouth. 06/11/2023 norgestimate-ethinyl estradioL (ORTHO-CYCLEN) 0.25- mg-35 mcg per tablet Take 1 tablet by mouth. 06/11/2023 propranoloL (INDERAL) 40 mg tablet Take 1 tablet (40 mg total) by mouth every 6 (six) hours as needed (anxiety). 30 tablet 11 03/26/2023 documented as of this encounter Plan of Treatment Not on file documented as of this encounter Procedures Procedure Name Priority Date/Time Associated Diagnosis Comments DX CHEST AP OR PA AND LATERAL 2 VIEWS RAD - Routine (most inpatients and all outpatients) 08/02/2023 8:16 AM CDT Preoperative Exam documented in this encounter Results * DX Chest AP [...] documented in this encounter Visit Diagnoses Diagnosis Preoperative Exam documented in this encounter Care Teams Legal Specialist Relationship Specialty Start Date End Date Black Bruno P.A.-C., P.A. PCP - General Family Medicine 08/27/17 documented as of this encounter
--- OUTSIDE RECORDS SUMMARY | 2023-08-17 06:05 | XMS_ITS | Encounter Summary ---
Author Name Unknown Organization [facility] Address [address] [place] [address] Care Team Providers Care Learning Administrator Name Role Phone Black Bruno P.A.-C., P.A. Primary Care Pr ovider Reason for Visit * Reason Comments Sinus Problem Ongoing for 2 weeksE ars feel full and ringingheadache * Appointment Request (Routine) - Closed Specialty Diagnoses / Procedures Referred By Paco ferraro Referred To Contact Family Medicine Referral ID Status Reason Start Date Expiration Date Visits Re quested Visits Authorized [id number] Closed 07/26/2023 07/25/2024 1 1 Encounter Details Date Type Department Care Team (Late st Contact Info) Description 07/26/2023 4:00 PM CDT Office Visit Department of Family Medicine, [facility], in [place], [place] [address] [place] [address] Black Bruno P.A.-C., P.A. [address] [place] [address] Sinusitis (Primary Dx) Social History Tobacco Use Types Packs/Day Years Used Date Smoking Tobacco: Never Smokeless Tobacco: Never Tobacco Cessation:Counseling Given: Not Answered Alcohol Use Standard Drinks/Week Comments Not Currently 0 (1 standard drink = 0.6 oz pur e alcohol) [facility] Utilities Answer Date Recorded In the [...] often do you attend chur ch or judaism services? More than 4 times per year 06/08/2021 Do you belong to any clubs o r organizations such as mormon groups, unions, fraternal or athletic groups, or [...] Answer Date Recorded PHQ-2 Score 0 04/12/2023 [facility] - [...] your living situation today? I have a [facility] place to live 03/23/2023 Education Answer Date Recorded What is the highest level of school you have completed or the highest degree you have received? Associate degree: occupational, technical, or vocational program 06/02/2021 Sex and Gender Information Value Date Recorded Sex Assigned at Female 03/23/2023 5:23 PM RADIOLOGY SCHEDULER Gender Identity Female 03/23/2023 5:23 PM RADIOLOGY SCHEDULER Sexual Orientation Straight 03/23/2023 5: 23 PM RADIOLOGY SCHEDULER documented as of this encounter Last Filed Vital Signs Vital Sign Reading Time Taken Comments Blood Pressure 132/84 07/26/2023 3:[address] rage Pulse 103 07/26/2023 3:49 PM CDT Temperature 36.1 ??C (96.9 ??F) 07/26/2023 3:49 PM CD T Respiratory Rate 16 07/26/2023 3:49 PM CDT Oxygen Saturation - - Inhaled Oxygen Concentration - - Weight 131 kg (289 lb 5.7 oz) 07/26/2023 3:49 PM CDT Height 164.3 cm (5' 4.69) 07/26/2023 3:49 PM CD T Body Mass Index 48.62 07/26/2023 3:49 PM CDT documented in this encounter Progress Notes * Black Bruno P.A.-C., P.A. - 07/26/2023 4:00 PM CDT SUBJECTIVE CHIEF COMPLAINT / REASON FOR VISIT Adina Laboy is a 22 y.o. female who presents for evaluation of Sinus Problem (Ongoing for 2 weeks/Ears feel full and ringing/headache). HISTORY OF PRESENT ILLNESS Adina presents today with complaints of sinus congestion. She recently was treated with Augmentin her symptoms do not seem to be getting better. She is currently using nasal steroids antihistamines and Singulair. OBJECTIVE Vitals: 07/26/23 1549 BP: 132/84 BP Location: Left arm Patient Position: Sitting Cuff Size: Large Pulse: 103 Resp: 16 Temp: 36.1 ??C TempSrc: Temporal Weight: 131 kg Height: 164.3 cm Body mass index is 48.62 kg/m??. PHYSICAL EXAMINATION General: Patient appears in no acute distress. ENT: TMs no erythema. Mild discomfort of her maxillary and frontal sinuses. Neck: No lymphadenopathy. No thyroid masses. Heart: Regular rate and rhythm. No murmurs. Lungs: Clear to auscultation. ASSESSMENT / PLAN #1 Sinusitis We had a good discussion. I am going to have her try a nasal saline rinse in addition to her other treatment regimen. If her symptoms worsen or not improve she will let us know Black Bruno P.A.-C., P.A. documented in this encounter Plan of Treatment Not on file documented as of this encounter Visit Diagnoses Diagnosis Sinusitis- Primary documented in this encounter Care Teams Learning Administrator Relationship Specialty Start Date End Date Black Bruno P.A.-C., P.A. PCP - General Family Medicine 08/27/17 documented as of this encounter
[2023-08-17 06:13] VITALS: BP 148/114; PULSE 91; RESP 16; TEMP 37.1; O2SAT 97; BMI 48.3
[2023-08-17] MEDS: SODIUM CHLORIDE 0.9 % (FLUSH) 10 ML SYRINGE IVF (06:30)
[2023-08-17] MEDS: LACTATED RINGERS 1000 ML 1,000 ML 100 ML IV (06:30)
[2023-08-17 07:04] LABS: Ur HCG Qualitative* Negative (Negative)
--- NOTE | 2023-08-17 07:20 | W.ANESCHARGE ---
Anesthesia Charges Start Date/Time Anesthesia Start Date: 08/17/23 Anesthesia Start Time: 07:15 Stop Date/Time Anesthesia Stop Date: 08/17/23 Anesthesia Stop Time: 07:52
--- NOTE | 2023-08-17 07:45 | P.GYNPRC_ITS ---
Procedure Note Time Seen by Provider: 07:45 Date of procedure: 08/17/23 Will [facility] bill your pro fee for this procedure?: Yes Pre-op diagnosis: 1. Menorrhagia 2. Intolerant to pelvic exam Post-op diagnosis: Same Procedure: 1. Exam under anesthesia 2. Mirena IUD placement Complications: None Surgeon: Mary Mcclain MD Pathology: none sent Findings: Pelvic exam: Mons normal, clitoris normal, urethral meatus normal. Labia minora and majora normal in appearance bilaterally. Perineum and anus normal appearance. Vaginal introitus normal appearance. Vaginal pink and well rugated with scant white discharge. Cervix pink and without lesion. Bimanual exam difficult due to habitus. Procedure Description: INDICATIONS: 22yo , with heavy menstrual bleeding, desiring Mirena IUD for management We discussed risks of IUD insertion, including bleeding, infection, uterine perforation, expulsion, and the rare risk of with IUD in place. We discussed likely changes in menstrual bleeding patterns. Consent form reviewed with and signed by patient. Urine test is negative today. DESCRIPTION OF PROCEDURE: The patient was taken to the operating room where MAC anesthesia was administered. She underwent a vaginal prep in the normal sterile fashion in the dorsal lithotomy position in yellow fin/candy cane stirrups, taking care to avoid lower extremity hyperextension, hyperflexion or compression. A surgical time-out was performed with the entire operative staff per protocol. EUA revealed the above findings. A speculum was placed in the patient's vagina and a single-tooth tenaculum was placed on the anterior lip of the cervix. Cervix visualized and tenaculum was attached to the anterior lip of the cervix. Uterus sounds to 8 cm. The IUD is loaded into the insertion tube, inserted to the sounded depth, and the IUD is deployed. Insertion tube was removed. Strings are trimmed to 3 cm. There were no complications with insertion. Of note, patient still had a strong reaction to speculum insertion despite MAC in which she tried to move up the OR table. Sleep apnea was also noted throughout the case. Sponge, lap and needle counts were correct x 2. The patient was taken to the recovery room in stable condition. Surgical debrief performed.
[2023-08-17 07:52] VITALS: BP 127/95; PULSE 95; RESP 16; TEMP 36.9; O2SAT 98
--- NOTE | 2023-08-17 07:59 | W.ANESCHARGE ---
Anesthesia Charges Start Date/Time Anesthesia Start Date: 08/17/23 Anesthesia Start Time: 07:15 Stop Date/Time Anesthesia Stop Date: 08/17/23 Anesthesia Stop Time: 07:52
[2023-08-17 08:00] VITALS: BP 120/80; PULSE 95; RESP 16; O2SAT 98
[2023-08-17] MEDS: ONDANSETRON 2 MG/ML inj 4 MG IVP (08:15)
[2023-08-17 08:30] VITALS: BP 122/80; PULSE 93; RESP 16; O2SAT 98
== END 2023-08-17 08:40 | disposition home or self-care (01) ==
LOC: OR 06:03
PROVIDERS: PCP Physician Assistant; Visit Provider Obstetrics & Gynecology
PROC: (CPT 58300; principal; 2023-08-17 07:15)
DX: N92.0 Excessive and frequent menstruation with regular cycle (principal); Z30.430 Encounter for insertion of intrauterine contraceptive device
CPT/HCPCS: 58300; 00940; 36415; 81025; 86850; 86900; 86901; J1100; J1200; J1885; J2250; J2405; J2704; J3010; J3490; J7120; J7298

== ENCOUNTER 2024-07-20 11:46 | Outpatient (CLI) | payer OTHER, SELFPAY ==
[2024-07-20 13:49] LABS: Strep A DNA Probe* NOT DETECTED (Not Detectd)
== END 2024-07-20 11:47 | disposition home or self-care (01) ==
LOC: KYNREF 11:46
PROVIDERS: PCP Nurse Practitioner Family; Visit Provider Nurse Practitioner Family
DX: J02.9 Acute pharyngitis, unspecified (principal)
CPT/HCPCS: 87651

== ENCOUNTER 2025-01-10 15:06 | Outpatient (CLI) | payer OTHER, SELFPAY ==
--- NOTE | 2025-01-10 15:15 | CRLHL7_ITS ---
For Patients: As a result of the Century Cures Act, medical imaging exams and procedure reports are released immediately into your electronic medical record. You may view this report before your referring provider. If you have questions, please contact your health care provider. INDICATION: Irregular Bleeding COMPARISON: None. TECHNIQUE: 2D neves-scale and color Doppler images were acquired of the pelvis using a transabdominal approach. FINDINGS: Sonographic images demonstrate a normal size and smooth outer contour of the uterus. Uterus measures 10.0 cm in length by 4.0 cm in AP diameter by 5.0 cm in transverse dimension. The myometrium has a normal uniform echotexture. The endometrial lining appears normal and measures 7.2 mm in thickness. IUD is present in good position. The right ovary measures 3.9 x 3.0 x 2.4 cm in size and the left ovary measures 3.4 x 2.1 x 2.5 cm. The ovaries demonstrate normal arterial and venous blood flow on color Doppler analysis. There are no suspicious fluid collections within the cul-de-sac. IMPRESSION: Normal pelvic ultrasound. Normal position of an IUD. Endometrial thickness 7.2 millimeters. Dictated by Kip Nguyen MD @ 01/10/2025 5:32:53 PM (Electronically Signed)
== END 2025-01-10 15:07 | disposition home or self-care (01) ==
LOC: US 15:07
PROVIDERS: PCP Nurse Practitioner Family; Visit Provider Obstetrics & Gynecology
DX: N92.6 Irregular menstruation, unspecified (principal); R93.89 Abnormal findings on diagnostic imaging of other specified body structures
CPT/HCPCS: 76856

== ENCOUNTER 2025-03-26 09:48 | Outpatient (CLI) | payer OTHER, SELFPAY ==
[2025-03-26 14:38] LABS: Strep A DNA Probe* NOT DETECTED (Not Detectd)
[2025-03-26 16:28] LABS: PCR FLU A POSITIVE PCR FLU A (Negative); PCR FLU B Negative PCR FLU B (Negative); SARS PCR* Negative SARS-CoV-2 (Negative)
== END 2025-03-26 09:49 | disposition home or self-care (01) ==
PROVIDERS: PCP Nurse Practitioner Family; Visit Provider Nurse Practitioner Family
DX: J11.1 Influenza due to unidentified influenza virus with other respiratory manifestations (principal)
CPT/HCPCS: 87636; 87651